=== PATIENT | male | born 1955 | race Caucasian/White ===

== ENCOUNTER 2017-11-10 15:52 | Inpatient (IN) ==
[2017-11-10] MEDS ORDERED: ENOXAPARIN 100 MG/ML SYRINGE SUBCUT STA (16:07)
[2017-11-10] MEDS ORDERED: ASPIRIN 325 MG TABLET PO STA (16:07)
[2017-11-10] MEDS ORDERED: NITROGLYCERIN SL 0.4 MG TABLET SL ONE (16:19)
[2017-11-10] MEDS ORDERED: ENOXAPARIN 120 MG/0.8 ML SYRINGE SUBCUT ONE (16:19)
[2017-11-10] MEDS ORDERED: ONDANSETRON 4 MG/2 ML VIAL ONE (16:28)
[2017-11-10] MEDS ORDERED: ONDANSETRON 4 MG/2 ML VIAL IV STA (16:38)
[2017-11-10] MEDS ORDERED: NITROGLYCERIN SL 0.4 MG TABLET SL STA (16:38)
[2017-11-10 16:44] LABS: Basophils % 0.3 % (0.0-0.8); Hematocrit 48.7 VOL% (42.0-52.0); Hemoglobin 16.5 GM/DL (14.0-18.0); Immature Granulocytes % 0.5 %; Immature Granulocytes Absolute 0.03 #; Lymphocytes # 0.8 10*3/uL (1.4-4.0); Lymphocytes % 11.3 % (21.2-54.2); Mean Corpuscular HGB Conc 33.9 GM/DL (32-36); Mean Corpuscular Hemoglobin 34 PG (27-34); Mean Corpuscular Volume 99.6 FL (87-102); Mean Platelet Volume 10.7 FL (9.6-12.0); Monocytes # 0.4 10*3/uL (0.11-0.8); Monocytes % 5.3 % (1.7-12.7); Neutrophils # 5.5 10*3/uL (1.4-7.4); Neutrophils % 82.6 % (38.7-73.9); Platelet Count 114 T/CUMM (130-400); Red Blood Count 4.89 MC/CUMM (3.8-5.5); Red Cell Distribution Width 12.2 % (9.3-17.3); White Blood Count 6.6 T/CUMM (4-12)
[2017-11-10] MEDS ORDERED: fentaNYL 100 MCG/2 ML VIAL ONE (16:57)
[2017-11-10] MEDS ORDERED: HEPARIN/NACL 0.9% 2 UNITS/ML 1,000 ML IV ONE (16:57)
[2017-11-10] MEDS ORDERED: MIDAZOLAM 2 MG/2 ML VIAL ONE (16:57)
[2017-11-10 17:08] LABS: Albumin 3.6 G/DL (3.4-5.0); Bilirubin,Total 0.9 MG/DL (0.2-1.0); Calcium 8.4 MG/DL (8.5-10.1); Osmolality,Calculated 267.2 MOS/KG (273-304); Potassium 3.8 MMOL/L (3.5-5.1); Total Protein 7.6 G/DL (6.4-8.3)
[2017-11-10] MEDS ORDERED: BISACODYL 5 MG TABLET PO PRN (17:08)
[2017-11-10] MEDS ORDERED: diphenhydrAMINE CAP 25 MG CAPSULE PO PRN (17:08)
[2017-11-10] MEDS ORDERED: MAGNESIUM SULF RIDER 2 GM in PREMIX 1 EACH IV PRN (17:08)
[2017-11-10] MEDS ORDERED: ONDANSETRON 4 MG/2 ML VIAL IV PRN (17:08)
[2017-11-10] MEDS ORDERED: MAGNESIUM SULF RIDER 4 GM in PREMIX 1 EACH IV PRN (17:08)
[2017-11-10] MEDS ORDERED: DIAZEPAM 5 MG TABLET PO ONE (17:13)
[2017-11-10] MEDS ORDERED: diphenhydrAMINE CAP 25 MG CAPSULE PO ONE (17:13)
[2017-11-10] MEDS ORDERED: SODIUM CHLORIDE 0.9% 1,000 ML IV SCH (17:30)
[2017-11-10] MEDS ORDERED: LIDOCAINE 1% 20 ML VIAL ONE (17:37)
[2017-11-10] MEDS ORDERED: ADENOSINE 6 MG/2 ML VIAL ONE (17:37)
[2017-11-10] MEDS ORDERED: DILTIAZEM 50 MG/10 ML VIAL IV ONE ×2 (17:44→18:06)
[2017-11-10] MEDS: DILTIAZEM INJ 100 MG in SODIUM CHLORIDE 0.9% 100 ML IV SCH (18:00)
[2017-11-10] MEDS ORDERED: METOPROLOL TARTRATE 5 MG/5 ML VIAL IV PRN (21:51)
[2017-11-10] MEDS: POTASSIUM CHLORIDE 20 MEQ TABLET PO PRN (22:09)
[2017-11-10] MEDS: ASCORBIC ACID 500 MG TABLET PO SCH (22:09)
[2017-11-10] MEDS: METOPROLOL TARTRATE 50 MG TABLET PO SCH (22:09)
[2017-11-10] MEDS: ZALEPLON 5 MG CAPSULE PO PRN (22:12)
[2017-11-10] MEDS: ACETAMINOPHEN 325 MG TABLET PO PRN (23:45)
[2017-11-11] MEDS: DILTIAZEM INJ 100 MG in SODIUM CHLORIDE 0.9% 100 ML IV SCH ×2 (00:15→21:50)
[2017-11-11 06:03] LABS: Basophils % 0.2 % (0.0-0.8); Hematocrit 43.6 VOL% (42.0-52.0); Hemoglobin 14.8 GM/DL (14.0-18.0); Immature Granulocytes % 0.7 %; Immature Granulocytes Absolute 0.07 #; Lymphocytes # 1.2 10*3/uL (1.4-4.0); Lymphocytes % 11.3 % (21.2-54.2); Mean Corpuscular HGB Conc 33.9 GM/DL (32-36); Mean Corpuscular Hemoglobin 34 PG (27-34); Mean Platelet Volume 10.8 FL (9.6-12.0); Monocytes # 0.5 10*3/uL (0.11-0.8); Monocytes % 4.3 % (1.7-12.7); Neutrophils # 8.8 10*3/uL (1.4-7.4); Neutrophils % 83.5 % (38.7-73.9); Platelet Count 101 T/CUMM (130-400); Red Blood Count 4.36 MC/CUMM (3.8-5.5); Red Cell Distribution Width 12.3 % (9.3-17.3); White Blood Count 10.6 T/CUMM (4-12)
[2017-11-11 06:45] LABS: Calcium 7.7 MG/DL (8.5-10.1); Osmolality,Calculated 269.1 MOS/KG (273-304); Potassium 3.8 MMOL/L (3.5-5.1); Risk Ratio 2.31; Thyroid Stimulating Hormone 2.44 uIU/ml (0.358-3.74); VLDL CHOLESTEROL 14.4 MG/DL
[2017-11-11 07:03] LABS: Macrocytosis 2+; Platelet Estimate Decreased
[2017-11-11] MEDS ORDERED: POTASSIUM CHLORIDE 20 MEQ TABLET PO ONE (08:41)
[2017-11-11] MEDS ORDERED: MAGNESIUM SULF RIDER 2 GM in PREMIX 1 EACH IV ONE (08:41)
[2017-11-11] MEDS ORDERED: AMIODARONE INJ 450 MG in DEXTROSE 5% 241 ML IV SCH (09:00)
[2017-11-11] MEDS ORDERED: AMIODARONE INJ 150 MG in DEXTROSE 5% 100 ML IV ONE (09:03)
[2017-11-11] MEDS: RIVAROXABAN 20 MG TABLET PO SCH (09:09)
[2017-11-11] MEDS: METOPROLOL TARTRATE 50 MG TABLET PO SCH ×2 (09:09→20:23)
[2017-11-11] MEDS: MAGNESIUM OXIDE 400 MG TABLET PO SCH (09:10)
[2017-11-11] MEDS ORDERED: NITROGLYCERIN SL 0.4 MG TABLET SL PRN (10:53)
[2017-11-11] MEDS ORDERED: NITROGLYCERIN SL 0.4 MG TABLET SL ONE (10:56)
[2017-11-11] MEDS: ASPIRIN EC 81 MG TABLET PO SCH (10:58)
[2017-11-11] MEDS: ACETAMINOPHEN 325 MG TABLET PO PRN (10:58)
[2017-11-11] MEDS ORDERED: PHENYLEPHRINE DRIP 40 MG/250 ML PREMIX IV ONE (12:46)
[2017-11-11] MEDS: PHENYLEPHRINE DRIP 40 MG/250 ML PREMIX IV PRN ×2 (12:50→21:50)
[2017-11-11] MEDS ORDERED: PROPOFOL 200 MG/20 ML VIAL IV ONE (13:03)
[2017-11-11] MEDS: MULTIVITAMIN (CENTRUM) TABLET PO SCH (16:13)
[2017-11-11] MEDS: PANTOPRAZOLE 40 MG TABLET PO SCH (16:13)
[2017-11-11] MEDS: ASCORBIC ACID 500 MG TABLET PO SCH ×2 (16:14→20:22)
[2017-11-11] MEDS: AMIODARONE INJ 450 MG in DEXTROSE 5% 241 ML IV SCH (17:32)
[2017-11-11] MEDS: POTASSIUM CHLORIDE 20 MEQ TABLET PO PRN (20:22)
[2017-11-12 05:57] LABS: Basophils % 0.2 % (0.0-0.8); Eosinophils % 0.2 % (0.00-10.9); Hematocrit 42.9 VOL% (42.0-52.0); Hemoglobin 14.6 GM/DL (14.0-18.0); Immature Granulocytes % 1.2 %; Immature Granulocytes Absolute 0.08 #; Lymphocytes # 0.6 10*3/uL (1.4-4.0); Lymphocytes % 8.9 % (21.2-54.2); Mean Corpuscular Hemoglobin 34 PG (27-34); Mean Corpuscular Volume 100.7 FL (87-102); Mean Platelet Volume 11.6 FL (9.6-12.0); Monocytes # 0.3 10*3/uL (0.11-0.8); Monocytes % 3.8 % (1.7-12.7); Neutrophils # 5.7 10*3/uL (1.4-7.4); Neutrophils % 85.7 % (38.7-73.9); Platelet Count 89 T/CUMM (130-400); Red Blood Count 4.26 MC/CUMM (3.8-5.5); Red Cell Distribution Width 12.5 % (9.3-17.3); White Blood Count 6.7 T/CUMM (4-12)
[2017-11-12 06:03] LABS: Calcium 8.1 MG/DL (8.5-10.1); Potassium 3.9 MMOL/L (3.5-5.1)
[2017-11-12 07:56] LABS: Band Neutrophils 9 % (0-10); Hypochromasia 1+; Lymphocytes 9 % (20-55); Platelet Estimate Decreased; Segmented Neutrophils 79 % (50-85); Total Cells Counted 100
[2017-11-12] MEDS ORDERED: POTASSIUM CHLORIDE 20 MEQ TABLET PO ONE (08:23)
[2017-11-12] MEDS: DIGOXIN 0.5 MG/2 ML AMP IV SCH ×2 (08:30→14:51)
[2017-11-12] MEDS: MAGNESIUM OXIDE 400 MG TABLET PO SCH (08:30)
[2017-11-12] MEDS: ASCORBIC ACID 500 MG TABLET PO SCH ×2 (08:30→20:18)
[2017-11-12] MEDS: RIVAROXABAN 20 MG TABLET PO SCH (08:30)
[2017-11-12] MEDS: MULTIVITAMIN (CENTRUM) TABLET PO SCH (08:31)
[2017-11-12] MEDS: COLCHICINE 0.6 MG TABLET PO SCH ×2 (08:31→20:18)
[2017-11-12] MEDS: PANTOPRAZOLE 40 MG TABLET PO SCH (08:31)
[2017-11-12] MEDS: METOPROLOL TARTRATE 50 MG TABLET PO SCH ×2 (08:31→20:18)
[2017-11-12] MEDS: ASPIRIN EC 81 MG TABLET PO SCH (08:31)
[2017-11-12] MEDS: guaiFENesin/DM ER 600-30 MG TABLET PO PRN (08:31)
[2017-11-12] MEDS: AMIODARONE INJ 450 MG in DEXTROSE 5% 241 ML IV SCH ×2 (08:45→23:46)
[2017-11-12] MEDS: DILTIAZEM INJ 100 MG in SODIUM CHLORIDE 0.9% 100 ML IV SCH ×2 (11:40→18:09)
[2017-11-12 18:37] LABS: Barbiturates Screen,Urine Negative (Negative); Benzodiazepines Screen,Urine Positive (Negative); Cannabinoid Screen,Urine Negative (Negative); Opiate Screen,Urine Negative (Negative); Phencyclidine Screen,Urine Negative (Negative)
[2017-11-12] MEDS: ACETAMINOPHEN 325 MG TABLET PO PRN (20:17)
[2017-11-12] MEDS: ZALEPLON 5 MG CAPSULE PO PRN (20:18)
[2017-11-13 05:26] LABS: Basophils # 0.1 10*3/uL (0.0-0.2); Basophils % 0.8 % (0.0-0.8); Hemoglobin 14.8 GM/DL (14.0-18.0); Immature Granulocytes % 0.7 %; Immature Granulocytes Absolute 0.05 #; Lymphocytes # 0.4 10*3/uL (1.4-4.0); Lymphocytes % 5.5 % (21.2-54.2); Mean Corpuscular HGB Conc 35.2 GM/DL (32-36); Mean Corpuscular Hemoglobin 34 PG (27-34); Mean Corpuscular Volume 97.7 FL (87-102); Mean Platelet Volume 12.4 FL (9.6-12.0); Monocytes # 0.3 10*3/uL (0.11-0.8); Monocytes % 4.4 % (1.7-12.7); Neutrophils # 6.7 10*3/uL (1.4-7.4); Neutrophils % 88.6 % (38.7-73.9); Platelet Count 68 T/CUMM (130-400); Red Cell Distribution Width 12.7 % (9.3-17.3); White Blood Count 7.5 T/CUMM (4-12)
[2017-11-13 05:29] LABS: Calcium 7.8 MG/DL (8.5-10.1); Osmolality,Calculated 259.1 MOS/KG (273-304); Potassium 4.2 MMOL/L (3.5-5.1)
[2017-11-13 06:00] LABS: Band Neutrophils 4 % (0-10); Lymphocytes 5 % (20-55); Macrocytosis 2+; Platelet Estimate Decreased; Segmented Neutrophils 90 % (50-85); Total Cells Counted 100
[2017-11-13] MEDS: SODIUM CHLORIDE 0.9% 1,000 ML IV SCH ×2 (07:15→17:02)
[2017-11-13] MEDS: guaiFENesin/DM ER 600-30 MG TABLET PO PRN (08:50)
[2017-11-13] MEDS: ASCORBIC ACID 500 MG TABLET PO SCH ×2 (08:50→20:24)
[2017-11-13] MEDS: ASPIRIN EC 81 MG TABLET PO SCH (08:50)
[2017-11-13] MEDS: DIGOXIN 0.125 MG TABLET PO SCH (08:50)
[2017-11-13] MEDS: MULTIVITAMIN (CENTRUM) TABLET PO SCH (08:51)
[2017-11-13] MEDS: METOPROLOL TARTRATE 50 MG TABLET PO SCH ×2 (08:51→20:24)
[2017-11-13] MEDS: MAGNESIUM OXIDE 400 MG TABLET PO SCH (08:51)
[2017-11-13] MEDS: PANTOPRAZOLE 40 MG TABLET PO SCH (08:51)
[2017-11-13] MEDS: COLCHICINE 0.6 MG TABLET PO SCH ×2 (08:51→20:24)
[2017-11-13] MEDS: ACETAMINOPHEN 325 MG TABLET PO PRN (09:39)
[2017-11-13] MEDS: RIVAROXABAN 20 MG TABLET PO SCH (11:36)
[2017-11-13] MEDS: LOPERAMIDE 2 MG CAPSULE PO PRN ×2 (11:36→15:30)
[2017-11-13] MEDS: AMIODARONE INJ 450 MG in DEXTROSE 5% 241 ML IV SCH (14:50)
[2017-11-13] MEDS: DILTIAZEM INJ 100 MG in SODIUM CHLORIDE 0.9% 100 ML IV SCH (17:51)
[2017-11-13] MEDS: ZALEPLON 5 MG CAPSULE PO PRN (20:24)
[2017-11-14] MEDS: SODIUM CHLORIDE 0.9% 1,000 ML IV SCH ×2 (02:37→12:52)
[2017-11-14 05:02] LABS: Basophils % 0.2 % (0.0-0.8); Eosinophils % 0.2 % (0.00-10.9); Hematocrit 36.4 VOL% (42.0-52.0); Hemoglobin 12.3 GM/DL (14.0-18.0); Immature Granulocytes % 1.5 %; Immature Granulocytes Absolute 0.09 #; Lymphocytes # 0.4 10*3/uL (1.4-4.0); Mean Corpuscular HGB Conc 33.8 GM/DL (32-36); Mean Corpuscular Hemoglobin 34 PG (27-34); Mean Corpuscular Volume 100.6 FL (87-102); Mean Platelet Volume 11.7 FL (9.6-12.0); Monocytes # 0.3 10*3/uL (0.11-0.8); Monocytes % 4.3 % (1.7-12.7); Neutrophils # 5.2 10*3/uL (1.4-7.4); Neutrophils % 86.8 % (38.7-73.9); Platelet Count 89 T/CUMM (130-400); Red Blood Count 3.62 MC/CUMM (3.8-5.5); Red Cell Distribution Width 12.5 % (9.3-17.3)
[2017-11-14 05:28] LABS: Band Neutrophils 5 % (0-10); Lymphocytes 4 % (20-55); Segmented Neutrophils 87 % (50-85); Total Cells Counted 100
[2017-11-14 05:29] LABS: Hypochromasia 1+; Macrocytosis 1+
[2017-11-14 05:32] LABS: Calcium 7.7 MG/DL (8.5-10.1); Osmolality,Calculated 264.8 MOS/KG (273-304); Potassium 3.7 MMOL/L (3.5-5.1)
[2017-11-14] MEDS: AMIODARONE INJ 450 MG in DEXTROSE 5% 241 ML IV SCH (06:20)
[2017-11-14] MEDS: ACETAMINOPHEN 325 MG TABLET PO PRN ×2 (07:12→20:42)
[2017-11-14] MEDS: METOPROLOL TARTRATE 50 MG TABLET PO SCH (08:23)
[2017-11-14] MEDS: MULTIVITAMIN (CENTRUM) TABLET PO SCH (08:23)
[2017-11-14] MEDS: POTASSIUM CHLORIDE 20 MEQ TABLET PO PRN (08:23)
[2017-11-14] MEDS: RIVAROXABAN 20 MG TABLET PO SCH (08:23)
[2017-11-14] MEDS: COLCHICINE 0.6 MG TABLET PO SCH (08:23)
[2017-11-14] MEDS: PANTOPRAZOLE 40 MG TABLET PO SCH (08:23)
[2017-11-14] MEDS: MAGNESIUM OXIDE 400 MG TABLET PO SCH (08:23)
[2017-11-14] MEDS: ASPIRIN EC 81 MG TABLET PO SCH (08:23)
[2017-11-14] MEDS: ASCORBIC ACID 500 MG TABLET PO SCH ×2 (08:23→20:43)
[2017-11-14] MEDS: DIGOXIN 0.125 MG TABLET PO SCH (08:23)
[2017-11-14] MEDS: LOPERAMIDE 2 MG CAPSULE PO PRN (10:08)
[2017-11-14] MEDS: AMIODARONE 200 MG TABLET PO SCH (11:51)
[2017-11-14] MEDS: DILTIAZEM INJ 100 MG in SODIUM CHLORIDE 0.9% 100 ML IV SCH (18:08)
[2017-11-14] MEDS: ZALEPLON 5 MG CAPSULE PO PRN (20:43)
[2017-11-14] MEDS: METOPROLOL TARTRATE 100 MG TABLET PO SCH (20:43)
[2017-11-15] MEDS: SODIUM CHLORIDE 0.9% 1,000 ML IV SCH (02:01)
[2017-11-15 04:48] LABS: Basophils % 0.5 % (0.0-0.8); Eosinophils % 0.7 % (0.00-10.9); Hematocrit 35.5 VOL% (42.0-52.0); Hemoglobin 12.7 GM/DL (14.0-18.0); Immature Granulocytes Absolute 0.11 #; Lymphocytes # 0.4 10*3/uL (1.4-4.0); Lymphocytes % 7.7 % (21.2-54.2); Mean Corpuscular HGB Conc 35.8 GM/DL (32-36); Mean Corpuscular Hemoglobin 34 PG (27-34); Mean Corpuscular Volume 96.2 FL (87-102); Mean Platelet Volume 12.3 FL (9.6-12.0); Monocytes # 0.3 10*3/uL (0.11-0.8); Monocytes % 5.9 % (1.7-12.7); Neutrophils # 4.6 10*3/uL (1.4-7.4); Neutrophils % 83.2 % (38.7-73.9); Platelet Count 115 T/CUMM (130-400); Red Blood Count 3.69 MC/CUMM (3.8-5.5); Red Cell Distribution Width 12.7 % (9.3-17.3); White Blood Count 5.6 T/CUMM (4-12)
[2017-11-15 05:16] LABS: Calcium 7.7 MG/DL (8.5-10.1); Osmolality,Calculated 270.2 MOS/KG (273-304); Potassium 3.5 MMOL/L (3.5-5.1)
[2017-11-15 05:17] LABS: % Iron Saturation 6.8 % (18-50)
[2017-11-15 05:20] LABS: Bilirubin,Direct 0.6 MG/DL (0.0-0.20); Bilirubin,Indirect 0.6 MG/DL (0.0-1.0); Bilirubin,Total 1.2 MG/DL (0.2-1.0); Total Protein 5.8 G/DL (6.4-8.3)
[2017-11-15 05:45] LABS: Band Neutrophils 4 % (0-10); Lymphocytes 11 % (20-55); Segmented Neutrophils 82 % (50-85); Total Cells Counted 100
[2017-11-15 05:46] LABS: Macrocytosis 2+; Platelet Estimate Decreased
[2017-11-15 06:11] LABS: Hepatitis A Ab IgM Result Negative (Negative); Hepatitis B Core IgM Quant 0.09 Index; Hepatitis B Core IgM Result Negative (Negative); Hepatitis B Surface Ag Quant < 0.10 Index; Hepatitis B Surface Ag Result Negative (Negative); Hepatitis C Virus Ab Quant 0.18 Index; Hepatitis C Virus Ab Result Negative (Negative)
[2017-11-15 07:56] LABS: Folate 14.6 NG/ML (5.4-24.0)
[2017-11-15] MEDS: DIGOXIN 0.125 MG TABLET PO SCH (09:57)
[2017-11-15] MEDS: AMIODARONE 200 MG TABLET PO SCH (09:58)
[2017-11-15] MEDS: PANTOPRAZOLE 40 MG TABLET PO SCH (09:58)
[2017-11-15] MEDS: MULTIVITAMIN (CENTRUM) TABLET PO SCH (09:58)
[2017-11-15] MEDS: POTASSIUM CHLORIDE 20 MEQ TABLET PO PRN (09:58)
[2017-11-15] MEDS: MAGNESIUM OXIDE 400 MG TABLET PO SCH (09:58)
[2017-11-15] MEDS: ASCORBIC ACID 500 MG TABLET PO SCH (09:58)
[2017-11-15] MEDS: METOPROLOL TARTRATE 100 MG TABLET PO SCH (09:58)
[2017-11-15] MEDS: RIVAROXABAN 20 MG TABLET PO SCH (09:58)
[2017-11-15] MEDS: ASPIRIN EC 81 MG TABLET PO SCH (09:58)
[2017-11-15 15:58] VITALS: BP 110/67
== END 2017-11-15 16:30 | disposition home or self-care (01) | DRG 287 ==
LOC: N.ED 15:52 → N.EDINP 15:52 → N.CC 17:03 → N.TELES 11-14 18:05
PROVIDERS: ADMIT Internal Medicine Cardiovascular Disease; ATTEND Internal Medicine Cardiovascular Disease
PROC: CLCCHCL (ICD-10-PCS; 2017-11-10 17:30)

== ENCOUNTER 2017-11-17 11:14 | Inpatient (IN) ==
[2017-11-17] MEDS ORDERED: MORPHINE 4 MG/1 ML VIAL IV STA ×2 (12:16→14:02)
[2017-11-17] MEDS ORDERED: ONDANSETRON 4 MG/2 ML VIAL IV STA ×2 (12:18→14:02)
[2017-11-17] MEDS ORDERED: MORPHINE 4 MG/1 ML VIAL ONE ×2 (12:23→14:04)
[2017-11-17] MEDS ORDERED: ONDANSETRON 4 MG/2 ML VIAL ONE ×2 (12:23→14:04)
[2017-11-17 12:33] LABS: Basophils % 0.3 % (0.0-0.8); Eosinophils % 0.1 % (0.00-10.9); Hematocrit 38.3 VOL% (42.0-52.0); Hemoglobin 13.6 GM/DL (14.0-18.0); Immature Granulocytes % 1.3 %; Immature Granulocytes Absolute 0.16 #; Lymphocytes # 0.9 10*3/uL (1.4-4.0); Lymphocytes % 7.5 % (21.2-54.2); Mean Corpuscular HGB Conc 35.5 GM/DL (32-36); Mean Corpuscular Hemoglobin 35 PG (27-34); Mean Corpuscular Volume 98.2 FL (87-102); Mean Platelet Volume 11.3 FL (9.6-12.0); Monocytes # 0.5 10*3/uL (0.11-0.8); Monocytes % 3.8 % (1.7-12.7); Neutrophils # 10.4 10*3/uL (1.4-7.4); Platelet Count 279 T/CUMM (130-400)
[2017-11-17 12:46] LABS: INR 1.5; PT Patient Result 15.4 SECS; Partial Thromboplastin Time 39.4 SECS (0-40)
[2017-11-17 12:52] LABS: Band Neutrophils 3 % (0-10); Eosinophils 1 % (0-10); Hypochromasia Slight; Lymphocytes 4 % (20-55); Macrocytosis Slight; Ovalocytes Slight; Platelet Estimate Adequate; Segmented Neutrophils 86 % (50-85); Total Cells Counted 100
[2017-11-17 13:05] LABS: Alanine Aminotransferase 49 U/L (16-61); Albumin 1.8 G/DL (3.4-5.0); Alkaline Phosphatase 49 U/L (45-117); Aspartate Amino Transferase 50 U/L (0-37); Blood Urea Nitrogen 16 MG/DL (7-18); Calcium 7.9 MG/DL (8.5-10.1); Glucose 121 MG/DL (74-106); Osmolality,Calculated 276.7 MOS/KG (273-304); Potassium 3.6 MMOL/L (3.5-5.1); Sodium 138 MMOL/L (136-145); Total Protein 5.3 G/DL (6.4-8.3); Troponin I Only < 0.015 NG/ML (0.00-0.045)
[2017-11-17] MEDS ORDERED: LEVOFLOXACIN INJ 750 MG in PREMIX 1 EACH IV STA (14:15)
[2017-11-17] MEDS ORDERED: LEVOFLOXACIN INJ 150 ML IV ONE (14:19)
[2017-11-17] MEDS ORDERED: METOPROLOL TARTRATE 5 MG/5 ML VIAL IV ONE (15:18)
[2017-11-17] MEDS ORDERED: METOPROLOL TARTRATE 5 MG/5 ML VIAL IV STA (15:20)
[2017-11-17] MEDS ORDERED: ONDANSETRON 4 MG/2 ML VIAL IV PRN (15:47)
[2017-11-17] MEDS ORDERED: SODIUM CHLORIDE 0.9% 1,000 ML IV SCH (16:00)
[2017-11-17] MEDS ORDERED: ACETAMINOPHEN 325 MG TABLET ONE (16:22)
[2017-11-17] MEDS: ACETAMINOPHEN 325 MG TABLET PO PRN ×2 (16:23→20:37)
[2017-11-17] MEDS ORDERED: CLINDAMYCIN INJ 600 MG in PREMIX 1 EACH IV SCH (18:00)
[2017-11-17] MEDS ORDERED: CYCLOBENZAPRINE 10 MG TABLET PO PRN (20:34)
[2017-11-17] MEDS: FAMOTIDINE 20 MG TABLET PO SCH (20:37)
[2017-11-17] MEDS: METOPROLOL TARTRATE 100 MG TABLET PO SCH (20:37)
[2017-11-17] MEDS: VANCOMYCIN INJ 1,500 MG in SODIUM CHLORIDE 0.9% 500 ML IV SCH (21:51)
[2017-11-18] MEDS: ACETAMINOPHEN 325 MG TABLET PO PRN (02:05)
[2017-11-18 03:44] LABS: Basophils % 0.3 % (0.0-0.8); Eosinophils % 0.1 % (0.00-10.9); Hematocrit 37.6 VOL% (42.0-52.0); Immature Granulocytes % 0.9 %; Immature Granulocytes Absolute 0.12 #; Mean Corpuscular HGB Conc 34.6 GM/DL (32-36); Mean Corpuscular Hemoglobin 34 PG (27-34); Mean Corpuscular Volume 97.9 FL (87-102); Mean Platelet Volume 11.1 FL (9.6-12.0); Monocytes # 0.5 10*3/uL (0.11-0.8); Monocytes % 4.2 % (1.7-12.7); Neutrophils # 11.1 10*3/uL (1.4-7.4); Neutrophils % 86.5 % (38.7-73.9); Platelet Count 281 T/CUMM (130-400); Red Blood Count 3.84 MC/CUMM (3.8-5.5); Red Cell Distribution Width 12.8 % (9.3-17.3); White Blood Count 12.8 T/CUMM (4-12)
[2017-11-18 04:11] LABS: Calcium 7.9 MG/DL (8.5-10.1); Potassium 3.3 MMOL/L (3.5-5.1)
[2017-11-18 04:49] LABS: Hypochromasia 1+; Microcytosis Slight; Platelet Estimate Normal
[2017-11-18] MEDS: VANCOMYCIN INJ 1,500 MG in SODIUM CHLORIDE 0.9% 500 ML IV SCH ×2 (05:08→17:01)
[2017-11-18] MEDS: POTASSIUM CHLORIDE 20 MEQ TABLET PO PRN ×4 (05:42→12:58)
[2017-11-18] MEDS: PANTOPRAZOLE 40 MG TABLET PO SCH (09:05)
[2017-11-18] MEDS: FAMOTIDINE 20 MG TABLET PO SCH ×2 (09:05→21:01)
[2017-11-18] MEDS: AMIODARONE 200 MG TABLET PO SCH (09:05)
[2017-11-18] MEDS: MAGNESIUM OXIDE 400 MG TABLET PO SCH (09:05)
[2017-11-18] MEDS: IRON (CARBONYL)/VIT C/B12/FA TABLET PO SCH (09:06)
[2017-11-18] MEDS: DILTIAZEM CD 180 MG CAPSULE PO SCH ×2 (09:06→21:00)
[2017-11-18] MEDS: RIVAROXABAN 20 MG TABLET PO SCH (09:06)
[2017-11-18] MEDS: ASPIRIN EC 81 MG TABLET PO SCH (09:07)
[2017-11-18] MEDS: METOPROLOL TARTRATE 100 MG TABLET PO SCH ×2 (09:07→21:01)
[2017-11-18] MEDS: DIGOXIN 0.125 MG TABLET PO SCH (12:58)
[2017-11-18] MEDS ORDERED: LEVOFLOXACIN INJ 500 MG in PREMIX 1 EACH IV SCH (16:00)
[2017-11-19] MEDS: ACETAMINOPHEN 325 MG TABLET PO PRN (00:23)
[2017-11-19 03:51] LABS: Hematocrit 37.7 VOL% (42.0-52.0); Hemoglobin 13.3 GM/DL (14.0-18.0)
[2017-11-19 04:36] LABS: Calcium 7.9 MG/DL (8.5-10.1); Osmolality,Calculated 279.4 MOS/KG (273-304); Potassium 3.7 MMOL/L (3.5-5.1)
[2017-11-19] MEDS: VANCOMYCIN INJ 1,500 MG in SODIUM CHLORIDE 0.9% 500 ML IV SCH ×2 (05:37→18:08)
[2017-11-19] MEDS: METHOCARBAMOL 500 MG TABLET PO PRN ×3 (07:19→21:02)
[2017-11-19] MEDS: PANTOPRAZOLE 40 MG TABLET PO SCH (09:54)
[2017-11-19] MEDS: IRON (CARBONYL)/VIT C/B12/FA TABLET PO SCH (09:54)
[2017-11-19] MEDS: MAGNESIUM OXIDE 400 MG TABLET PO SCH (09:55)
[2017-11-19] MEDS: FAMOTIDINE 20 MG TABLET PO SCH ×2 (09:55→21:02)
[2017-11-19] MEDS: DILTIAZEM CD 180 MG CAPSULE PO SCH ×2 (09:55→21:01)
[2017-11-19] MEDS: RIVAROXABAN 20 MG TABLET PO SCH (09:55)
[2017-11-19] MEDS: ASPIRIN EC 81 MG TABLET PO SCH (09:55)
[2017-11-19] MEDS: AMIODARONE 200 MG TABLET PO SCH (09:55)
[2017-11-19] MEDS: METOPROLOL TARTRATE 100 MG TABLET PO SCH ×2 (09:55→21:02)
[2017-11-19] MEDS: DIGOXIN 0.125 MG TABLET PO SCH (12:52)
[2017-11-20 03:01] LABS: Basophils # 0.1 10*3/uL (0.0-0.2); Basophils % 0.3 % (0.0-0.8); Eosinophils # 0.1 10*3/uL (0.0-0.87); Eosinophils % 0.5 % (0.00-10.9); Hematocrit 38.5 VOL% (42.0-52.0); Immature Granulocytes % 1.4 %; Immature Granulocytes Absolute 0.21 #; Lymphocytes # 1.6 10*3/uL (1.4-4.0); Mean Corpuscular HGB Conc 33.8 GM/DL (32-36); Mean Corpuscular Hemoglobin 34 PG (27-34); Mean Corpuscular Volume 100.8 FL (87-102); Mean Platelet Volume 10.5 FL (9.6-12.0); Monocytes # 1.1 10*3/uL (0.11-0.8); Monocytes % 7.1 % (1.7-12.7); Neutrophils # 11.9 10*3/uL (1.4-7.4); Neutrophils % 79.7 % (38.7-73.9); Platelet Count 368 T/CUMM (130-400); Red Blood Count 3.82 MC/CUMM (3.8-5.5); Red Cell Distribution Width 13.2 % (9.3-17.3)
[2017-11-20 03:30] LABS: Calcium 7.9 MG/DL (8.5-10.1); Osmolality,Calculated 273.7 MOS/KG (273-304)
[2017-11-20] MEDS: VANCOMYCIN INJ 1,750 MG in SODIUM CHLORIDE 0.9% 500 ML IV SCH ×3 (04:06→21:02)
[2017-11-20 05:16] LABS: Band Neutrophils 6 % (0-10); Lymphocytes 5 % (20-55); Segmented Neutrophils 84 % (50-85); Total Cells Counted 100
[2017-11-20] MEDS: METHOCARBAMOL 500 MG TABLET PO PRN ×2 (07:07→17:05)
[2017-11-20] MEDS: IRON (CARBONYL)/VIT C/B12/FA TABLET PO SCH (09:11)
[2017-11-20] MEDS: DILTIAZEM CD 180 MG CAPSULE PO SCH ×2 (09:11→21:05)
[2017-11-20] MEDS: ASPIRIN EC 81 MG TABLET PO SCH (09:11)
[2017-11-20] MEDS: METOPROLOL TARTRATE 100 MG TABLET PO SCH ×2 (09:11→21:04)
[2017-11-20] MEDS: RIVAROXABAN 20 MG TABLET PO SCH (09:11)
[2017-11-20] MEDS: MAGNESIUM OXIDE 400 MG TABLET PO SCH (09:11)
[2017-11-20] MEDS: PANTOPRAZOLE 40 MG TABLET PO SCH (09:12)
[2017-11-20] MEDS: AMIODARONE 200 MG TABLET PO SCH (09:12)
[2017-11-20] MEDS: FAMOTIDINE 20 MG TABLET PO SCH ×2 (09:12→21:05)
[2017-11-20] MEDS: DIGOXIN 0.125 MG TABLET PO SCH (12:05)
[2017-11-21 03:15] LABS: Basophils % 0.4 % (0.0-0.8); Eosinophils # 0.1 10*3/uL (0.0-0.87); Eosinophils % 0.5 % (0.00-10.9); Hematocrit 38.8 VOL% (42.0-52.0); Hemoglobin 13.8 GM/DL (14.0-18.0); Immature Granulocytes % 1.4 %; Immature Granulocytes Absolute 0.14 #; Lymphocytes # 1.3 10*3/uL (1.4-4.0); Lymphocytes % 12.5 % (21.2-54.2); Mean Corpuscular HGB Conc 35.6 GM/DL (32-36); Mean Corpuscular Hemoglobin 35 PG (27-34); Mean Corpuscular Volume 97.5 FL (87-102); Mean Platelet Volume 10.7 FL (9.6-12.0); Monocytes # 0.8 10*3/uL (0.11-0.8); Monocytes % 7.8 % (1.7-12.7); Neutrophils % 77.4 % (38.7-73.9); Platelet Count 400 T/CUMM (130-400); Red Blood Count 3.98 MC/CUMM (3.8-5.5); Red Cell Distribution Width 13.1 % (9.3-17.3); White Blood Count 10.3 T/CUMM (4-12)
[2017-11-21 03:28] LABS: Calcium 8.1 MG/DL (8.5-10.1); Osmolality,Calculated 275.5 MOS/KG (273-304); Potassium 3.6 MMOL/L (3.5-5.1)
[2017-11-21] MEDS: VANCOMYCIN INJ 1,750 MG in SODIUM CHLORIDE 0.9% 500 ML IV SCH ×3 (03:57→21:31)
[2017-11-21 04:16] LABS: Platelet Estimate Normal; Polychromasia Few
[2017-11-21 04:17] LABS: Hypochromasia Slight
[2017-11-21 04:18] LABS: Giant Platelets Few
[2017-11-21] MEDS: MAGNESIUM OXIDE 400 MG TABLET PO SCH (09:13)
[2017-11-21] MEDS: METOPROLOL TARTRATE 100 MG TABLET PO SCH ×2 (09:13→21:30)
[2017-11-21] MEDS: ASPIRIN EC 81 MG TABLET PO SCH (09:13)
[2017-11-21] MEDS: PANTOPRAZOLE 40 MG TABLET PO SCH (09:14)
[2017-11-21] MEDS: RIVAROXABAN 20 MG TABLET PO SCH (09:14)
[2017-11-21] MEDS: DILTIAZEM CD 180 MG CAPSULE PO SCH (09:14)
[2017-11-21] MEDS: FAMOTIDINE 20 MG TABLET PO SCH ×2 (09:14→21:30)
[2017-11-21] MEDS: AMIODARONE 200 MG TABLET PO SCH (09:14)
[2017-11-21] MEDS: IRON (CARBONYL)/VIT C/B12/FA TABLET PO SCH (09:14)
[2017-11-21] MEDS: DIGOXIN 0.125 MG TABLET PO SCH (13:46)
[2017-11-21] MEDS: DILTIAZEM CD 240 MG CAPSULE PO SCH (21:30)
[2017-11-22] MEDS: VANCOMYCIN INJ 1,750 MG in SODIUM CHLORIDE 0.9% 500 ML IV SCH ×3 (04:19→20:20)
[2017-11-22] MEDS: FAMOTIDINE 20 MG TABLET PO SCH ×2 (09:23→21:58)
[2017-11-22] MEDS: DILTIAZEM CD 240 MG CAPSULE PO SCH ×2 (09:23→21:58)
[2017-11-22] MEDS: AMIODARONE 200 MG TABLET PO SCH (09:23)
[2017-11-22] MEDS: IRON (CARBONYL)/VIT C/B12/FA TABLET PO SCH (09:23)
[2017-11-22] MEDS: LOSARTAN 25 MG TABLET PO SCH (09:23)
[2017-11-22] MEDS: PANTOPRAZOLE 40 MG TABLET PO SCH (09:23)
[2017-11-22] MEDS: METOPROLOL TARTRATE 100 MG TABLET PO SCH ×2 (09:23→21:59)
[2017-11-22] MEDS: MAGNESIUM OXIDE 400 MG TABLET PO SCH (09:23)
[2017-11-22] MEDS: RIVAROXABAN 20 MG TABLET PO SCH (09:23)
[2017-11-22] MEDS: ASPIRIN EC 81 MG TABLET PO SCH (09:23)
[2017-11-22] MEDS: METHOCARBAMOL 500 MG TABLET PO PRN ×2 (09:44→19:45)
[2017-11-23] MEDS: VANCOMYCIN INJ 1,750 MG in SODIUM CHLORIDE 0.9% 500 ML IV SCH ×3 (04:21→21:05)
[2017-11-23 05:23] LABS: Basophils % 0.4 % (0.0-0.8); Eosinophils # 0.1 10*3/uL (0.0-0.87); Eosinophils % 1.2 % (0.00-10.9); Hematocrit 39.1 VOL% (42.0-52.0); Hemoglobin 13.2 GM/DL (14.0-18.0); Immature Granulocytes % 0.9 %; Immature Granulocytes Absolute 0.09 #; Lymphocytes # 1.5 10*3/uL (1.4-4.0); Lymphocytes % 15.1 % (21.2-54.2); Mean Corpuscular HGB Conc 33.8 GM/DL (32-36); Mean Corpuscular Hemoglobin 34 PG (27-34); Mean Corpuscular Volume 100.3 FL (87-102); Mean Platelet Volume 10.2 FL (9.6-12.0); Monocytes # 1.1 10*3/uL (0.11-0.8); Monocytes % 11.2 % (1.7-12.7); Neutrophils % 71.2 % (38.7-73.9); Platelet Count 450 T/CUMM (130-400); White Blood Count 9.9 T/CUMM (4-12)
[2017-11-23 05:46] LABS: Osmolality,Calculated 270.8 MOS/KG (273-304); Potassium 3.8 MMOL/L (3.5-5.1)
[2017-11-23 06:34] LABS: Band Neutrophils 4 % (0-10); Eosinophils 2 % (0-10); Lymphocytes 11 % (20-55); Segmented Neutrophils 77 % (50-85); Total Cells Counted 100
[2017-11-23 06:35] LABS: Macrocytosis 1+
[2017-11-23] MEDS: METHOCARBAMOL 500 MG TABLET PO PRN ×3 (06:41→21:01)
[2017-11-23] MEDS: DILTIAZEM CD 180 MG CAPSULE PO SCH ×2 (09:59→21:00)
[2017-11-23] MEDS: ASPIRIN EC 81 MG TABLET PO SCH (09:59)
[2017-11-23] MEDS: AMIODARONE 200 MG TABLET PO SCH (09:59)
[2017-11-23] MEDS: METOPROLOL TARTRATE 100 MG TABLET PO SCH ×2 (10:00→21:01)
[2017-11-23] MEDS: IRON (CARBONYL)/VIT C/B12/FA TABLET PO SCH (10:00)
[2017-11-23] MEDS: PANTOPRAZOLE 40 MG TABLET PO SCH (10:00)
[2017-11-23] MEDS: MAGNESIUM OXIDE 400 MG TABLET PO SCH (10:00)
[2017-11-23] MEDS: FAMOTIDINE 20 MG TABLET PO SCH ×2 (10:00→21:01)
[2017-11-23] MEDS: LOSARTAN 25 MG TABLET PO SCH (10:00)
[2017-11-23] MEDS: RIVAROXABAN 20 MG TABLET PO SCH (10:00)
[2017-11-24] MEDS: VANCOMYCIN INJ 1,750 MG in SODIUM CHLORIDE 0.9% 500 ML IV SCH ×3 (04:20→20:48)
[2017-11-24] MEDS: RIVAROXABAN 20 MG TABLET PO SCH (08:56)
[2017-11-24] MEDS: IRON (CARBONYL)/VIT C/B12/FA TABLET PO SCH (08:56)
[2017-11-24] MEDS: DILTIAZEM CD 180 MG CAPSULE PO SCH (08:56)
[2017-11-24] MEDS: FAMOTIDINE 20 MG TABLET PO SCH ×2 (08:56→20:51)
[2017-11-24] MEDS: PANTOPRAZOLE 40 MG TABLET PO SCH (08:56)
[2017-11-24] MEDS: AMIODARONE 200 MG TABLET PO SCH (08:56)
[2017-11-24] MEDS: ASPIRIN EC 81 MG TABLET PO SCH (08:57)
[2017-11-24] MEDS: MAGNESIUM OXIDE 400 MG TABLET PO SCH (08:57)
[2017-11-24] MEDS: METOPROLOL TARTRATE 100 MG TABLET PO SCH ×2 (08:57→20:51)
[2017-11-24] MEDS: LOSARTAN 25 MG TABLET PO SCH (08:57)
[2017-11-24] MEDS: METHOCARBAMOL 500 MG TABLET PO PRN ×2 (08:57→20:55)
[2017-11-24] MEDS: ACETAMINOPHEN 325 MG TABLET PO PRN ×2 (20:51)
[2017-11-25] MEDS: VANCOMYCIN INJ 1,750 MG in SODIUM CHLORIDE 0.9% 500 ML IV SCH (03:55)
[2017-11-25 05:16] LABS: Calcium 8.1 MG/DL (8.5-10.1); Osmolality,Calculated 273.7 MOS/KG (273-304); Potassium 3.7 MMOL/L (3.5-5.1)
[2017-11-25] MEDS: FAMOTIDINE 20 MG TABLET PO SCH (08:49)
[2017-11-25] MEDS: IRON (CARBONYL)/VIT C/B12/FA TABLET PO SCH (08:49)
[2017-11-25] MEDS: RIVAROXABAN 20 MG TABLET PO SCH (08:50)
[2017-11-25] MEDS: PANTOPRAZOLE 40 MG TABLET PO SCH (08:50)
[2017-11-25] MEDS: LOSARTAN 25 MG TABLET PO SCH (08:50)
[2017-11-25] MEDS: METOPROLOL TARTRATE 100 MG TABLET PO SCH (08:51)
[2017-11-25] MEDS: AMIODARONE 200 MG TABLET PO SCH (08:51)
[2017-11-25] MEDS: MAGNESIUM OXIDE 400 MG TABLET PO SCH (08:51)
[2017-11-25] MEDS: ASPIRIN EC 81 MG TABLET PO SCH (08:51)
[2017-11-25] MEDS ORDERED: DILTIAZEM CD 180 MG CAPSULE PO SCH (09:00)
[2017-11-25 16:32] VITALS: BP 134/63
== END 2017-11-25 16:55 | disposition home or self-care (01) | DRG 856 ==
LOC: N.ED 11:14 → N.2W 15:47 → SUATTDRO 15:47 → N.TELEN 16:40
PROVIDERS: ADMIT Internal Medicine Geriatric Medicine; ATTEND Internal Medicine

== ENCOUNTER 2019-10-08 05:36 | Inpatient (IN) ==
[~2019-10-08 05:36] MED LIST: ceFAZolin 1,000 MG VIAL IRRIG ONE; ceFAZolin 1,000 MG in SYRINGE 1 EACH IV ONE
[2019-10-08 08:15] LABS: Basophils # 0.1 10*3/uL (0.0-0.2); Basophils % 0.7 % (0.0-0.8); Eosinophils # 0.4 10*3/uL (0.0-0.87); Eosinophils % 6.2 % (0.00-10.9); Hematocrit 45.9 VOL% (42.0-52.0); Hemoglobin 15.2 GM/DL (14.0-18.0); Immature Granulocytes % 0.3 %; Immature Granulocytes Absolute 0.02 #; Lymphocytes # 2.3 10*3/uL (1.4-4.0); Lymphocytes % 32.5 % (21.2-54.2); Mean Corpuscular HGB Conc 33.1 GM/DL (32-36); Mean Corpuscular Volume 98.3 FL (87-102); Monocytes % 11.9 % (1.7-12.7); Neutrophils % 48.4 % (38.7-73.9); Platelet Count 228 T/CUMM (130-400); Red Blood Count 4.67 MC/CUMM (3.8-5.5); Red Cell Distribution Width 12.5 % (9.3-17.3); White Blood Count 7.1 T/CUMM (4-12)
[2019-10-08 08:42] LABS: Calcium 9.5 MG/DL (8.5-10.1); Osmolality,Calculated 273.8 MOS/KG (273-304)
[2019-10-08] MEDS ORDERED: MAGNESIUM SULF RIDER 4 GM in PREMIX 1 EACH IV PRN (09:32)
[2019-10-08] MEDS ORDERED: ZALEPLON 5 MG CAPSULE PO PRN (09:32)
[2019-10-08] MEDS ORDERED: MAGNESIUM SULF RIDER 2 GM in PREMIX 1 EACH IV PRN (09:32)
[2019-10-08] MEDS ORDERED: DOCUSATE SODIUM 100 MG CAPSULE PO PRN (09:32)
[2019-10-08] MEDS ORDERED: ONDANSETRON 4 MG/2 ML VIAL IV PRN ×2 (09:32→14:03)
[2019-10-08] MEDS ORDERED: ACETAMINOPHEN 325 MG TABLET PO PRN (09:32)
[2019-10-08] MEDS ORDERED: ceFAZolin 2,000 MG in PREMIX 1 EACH IV ONE (09:38)
[2019-10-08] MEDS ORDERED: FAMOTIDINE 20 MG TABLET PO ONE (10:31)
[2019-10-08] MEDS ORDERED: DIAZEPAM 5 MG TABLET PO ONE (10:31)
[2019-10-08] MEDS ORDERED: FAMOTIDINE 20 MG TABLET ONE (10:34)
[2019-10-08] MEDS ORDERED: LACTATED RINGERS 1,000 ML IV SCH (11:00)
[2019-10-08] MEDS ORDERED: BACITRACIN OINT 0.9 GM PACK TOP ONE (13:24)
[2019-10-08] MEDS ORDERED: MAGNESIUM HYDROXIDE SUSP 30 ML UDCUP PO PRN (13:45)
[2019-10-08] MEDS ORDERED: diphenhydrAMINE CAP 25 MG CAPSULE PO PRN (13:47)
[2019-10-08] MEDS ORDERED: KETOROLAC 30 MG/1 ML VIAL IV PRN (13:47)
[2019-10-08] MEDS ORDERED: MORPHINE 4 MG/1 ML VIAL IV PRN (13:47)
[2019-10-08] MEDS ORDERED: LIDOCAINE 2% 5 ML VIAL ONE (13:58)
[2019-10-08] MEDS ORDERED: propofoL 200 MG/20 ML VIAL IV ONE (13:58)
[2019-10-08] MEDS ORDERED: LACTATED RINGERS 1,000 ML IV ONE (13:59)
[2019-10-08] MEDS ORDERED: fentaNYL 100 MCG/2 ML VIAL ONE (13:59)
[2019-10-08] MEDS ORDERED: SEVOFLURANE 1 UNIT/15 MINUTE INH ONE (13:59)
[2019-10-08] MEDS ORDERED: MIDAZOLAM 2 MG/2 ML VIAL ONE (13:59)
[2019-10-08] MEDS ORDERED: ONDANSETRON 4 MG/2 ML VIAL ONE ×2 (13:59→14:03)
[2019-10-08] MEDS ORDERED: HYDROmorphone 2 MG/1 ML VIAL ONE (14:03)
[2019-10-08] MEDS: HYDROmorphone 2 MG/1 ML VIAL IV PRN ×4 (14:05→14:20)
[2019-10-08] MEDS: METOPROLOL TARTRATE 100 MG TABLET PO SCH ×2 (16:07→21:56)
[2019-10-08] MEDS: amLODIPine 10 MG TABLET PO SCH (16:08)
[2019-10-08] MEDS: LACTATED RINGERS 1,000 ML IV SCH ×2 (16:09→21:54)
[2019-10-08] MEDS: ceFAZolin 2,000 MG in PREMIX 1 EACH IV SCH (20:44)
[2019-10-08] MEDS: MAGNESIUM OXIDE 400 MG TABLET PO SCH (21:56)
[2019-10-08] MEDS: FAMOTIDINE 20 MG TABLET PO SCH (21:56)
[2019-10-08] MEDS: MULTIVITAMIN (CENTRUM) TABLET PO SCH (21:56)
[2019-10-08] MEDS: ASPIRIN EC 81 MG TABLET PO SCH (21:56)
[2019-10-08] MEDS: MORPHINE 4 MG/1 ML VIAL IV PRN (22:42)
[2019-10-09] MEDS: MORPHINE 4 MG/1 ML VIAL IV PRN (03:54)
[2019-10-09] MEDS: ceFAZolin 2,000 MG in PREMIX 1 EACH IV SCH ×3 (06:17→20:47)
[2019-10-09 08:14] LABS: Calcium 8.4 MG/DL (8.5-10.1); Osmolality,Calculated 269.1 MOS/KG (273-304)
[2019-10-09 08:17] LABS: Basophils # 0.1 10*3/uL (0.0-0.2); Basophils % 0.6 % (0.0-0.8); Eosinophils # 0.4 10*3/uL (0.0-0.87); Eosinophils % 4.2 % (0.00-10.9); Hematocrit 38.9 VOL% (42.0-52.0); Immature Granulocytes % 0.2 %; Immature Granulocytes Absolute 0.02 #; Lymphocytes # 2.2 10*3/uL (1.4-4.0); Lymphocytes % 26.9 % (21.2-54.2); Mean Corpuscular HGB Conc 33.7 GM/DL (32-36); Mean Platelet Volume 10.6 FL (9.6-12.0); Monocytes % 13.8 % (1.7-12.7); Neutrophils % 54.3 % (38.7-73.9); Red Blood Count 3.97 MC/CUMM (3.8-5.5); Red Cell Distribution Width 12.3 % (9.3-17.3); White Blood Count 8.3 T/CUMM (4-12)
[2019-10-09 08:20] LABS: Hemoglobin 13.1 GM/DL (14.0-18.0); Platelet Count 181 T/CUMM (130-400)
[2019-10-09] MEDS ORDERED: CLORAZEPATE 3.75 MG TABLET PO PRN (08:25)
[2019-10-09] MEDS: amLODIPine 10 MG TABLET PO SCH (10:26)
[2019-10-09] MEDS: ENOXAPARIN 40 MG/0.4 ML SYRINGE SUBCUT SCH (10:26)
[2019-10-09] MEDS: FAMOTIDINE 20 MG TABLET PO SCH ×2 (10:26→20:49)
[2019-10-09] MEDS: METOPROLOL TARTRATE 100 MG TABLET PO SCH ×2 (10:27→20:49)
[2019-10-09] MEDS: LOSARTAN/HCTZ 50-12.5 MG TABLET PO SCH (10:27)
[2019-10-09] MEDS: ASPIRIN EC 81 MG TABLET PO SCH (20:48)
[2019-10-09] MEDS: MAGNESIUM OXIDE 400 MG TABLET PO SCH (20:49)
[2019-10-09] MEDS: MULTIVITAMIN (CENTRUM) TABLET PO SCH (20:50)
[2019-10-10] MEDS: ceFAZolin 2,000 MG in PREMIX 1 EACH IV SCH ×3 (07:13→20:51)
[2019-10-10] MEDS: FAMOTIDINE 20 MG TABLET PO SCH ×2 (08:34→20:53)
[2019-10-10] MEDS: LOSARTAN/HCTZ 50-12.5 MG TABLET PO SCH (08:34)
[2019-10-10] MEDS: amLODIPine 10 MG TABLET PO SCH (08:35)
[2019-10-10] MEDS: METOPROLOL TARTRATE 100 MG TABLET PO SCH ×2 (08:35→20:52)
[2019-10-10] MEDS: ENOXAPARIN 40 MG/0.4 ML SYRINGE SUBCUT SCH (09:50)
[2019-10-10] MEDS: MAGNESIUM OXIDE 400 MG TABLET PO SCH (20:52)
[2019-10-10] MEDS: MULTIVITAMIN (CENTRUM) TABLET PO SCH (20:52)
[2019-10-10] MEDS: ASPIRIN EC 81 MG TABLET PO SCH (20:53)
[2019-10-11] MEDS: ceFAZolin 2,000 MG in PREMIX 1 EACH IV SCH ×2 (03:15→13:04)
[2019-10-11] MEDS: amLODIPine 10 MG TABLET PO SCH (10:00)
[2019-10-11] MEDS: METOPROLOL TARTRATE 100 MG TABLET PO SCH (10:00)
[2019-10-11] MEDS: LOSARTAN/HCTZ 50-12.5 MG TABLET PO SCH (10:00)
[2019-10-11] MEDS: FAMOTIDINE 20 MG TABLET PO SCH (10:01)
[2019-10-11] MEDS: ENOXAPARIN 40 MG/0.4 ML SYRINGE SUBCUT SCH (10:01)
[2019-10-11 11:49] VITALS: BP 114/69
[2019-10-12] MEDS ORDERED: ASPIRIN EC 325 MG TABLET PO SCH (09:00)
== END 2019-10-11 14:20 | disposition home health service (06) | DRG 493 ==
LOC: N.CL 05:36 → N.SDSINP 06:04 → N.TELEN 14:55
PROVIDERS: ADMIT Internal Medicine Clinical Cardiac Electrophysiology; ATTEND Internal Medicine Clinical Cardiac Electrophysiology

== ENCOUNTER 2019-12-25 09:00 | Inpatient (IN) ==
[2019-12-25] MEDS ORDERED: NITROGLYCERIN 2% OINT 1 INCH/GM PACK TOP STA (09:19)
[2019-12-25] MEDS ORDERED: ENOXAPARIN 100 MG/ML SYRINGE SUBCUT STA (09:19)
[2019-12-25] MEDS ORDERED: ASPIRIN 325 MG TABLET PO STA (09:19)
[2019-12-25] MEDS ORDERED: NITROGLYCERIN 2% OINT 1 INCH/GM PACK TOP ONE (09:20)
[2019-12-25] MEDS ORDERED: ENOXAPARIN 120 MG/0.8 ML SYRINGE SUBCUT ONE (09:20)
[2019-12-25] MEDS ORDERED: ASPIRIN EC 325 MG TABLET PO ONE (09:21)
[2019-12-25 10:01] LABS: Basophils % 0.7 % (0.0-0.8); Eosinophils # 0.6 10*3/uL (0.0-0.87); Eosinophils % 9.4 % (0.00-10.9); Hematocrit 38.7 VOL% (42.0-52.0); Hemoglobin 12.8 GM/DL (14.0-18.0); Immature Granulocytes % 0.2 %; Immature Granulocytes Absolute 0.01 #; Lymphocytes % 32.4 % (21.2-54.2); Mean Corpuscular HGB Conc 33.1 GM/DL (32-36); Mean Corpuscular Volume 93.5 FL (87-102); Mean Platelet Volume 10.5 FL (9.6-12.0); Monocytes % 15.3 % (1.7-12.7); Platelet Count 219 T/CUMM (130-400); Red Blood Count 4.14 MC/CUMM (3.8-5.5); Red Cell Distribution Width 12.5 % (9.3-17.3); White Blood Count 6.1 T/CUMM (4-12)
[2019-12-25 10:13] LABS: PT Patient Result 10.6 SECS (9.8-11.9); Partial Thromboplastin Time 27.8 SECS (23.9-33.8)
[2019-12-25 10:24] LABS: Albumin 3.1 G/DL (3.4-5.0); Bilirubin,Total 0.4 MG/DL (0.2-1.0); Calcium 8.9 MG/DL (8.5-10.1); Osmolality,Calculated 279.4 MOS/KG (273-304); Total Protein 6.6 G/DL (6.4-8.3)
[2019-12-25 11:16] LABS: Apearance,Urine CLEAR (Clear); Bilirubin,Urine Negative (Negative); Blood, Urine Negative (Negative); Glucose,Urine (UA) Negative (Negative); Ketones,Urine Negative (Negative); Nitrite,Urine Negative (Negative); Protein,Urine Negative; RBC,Urine 1 /HPF (0-4); Squamous Epithelial Cell,Urine Occasional /HPF (0-10); Urine Color Straw (Yellow); Urine Specific Gravity 1.008 (1.001-1.035); Urine Urobilinogen < 2.0 EU/DL (0.2-1.0); WBC,Urine 1 /HPF (0-6)
[2019-12-25] MEDS ORDERED: ACETAMINOPHEN 325 MG TABLET PO PRN (12:26)
[2019-12-25] MEDS ORDERED: DEXTROSE 50% 25 GM/50 ML VIAL IV PRN (12:26)
[2019-12-25] MEDS ORDERED: GLUCAGON 1 MG VIAL IM PRN (12:26)
[2019-12-25] MEDS ORDERED: AMIODARONE INJ 150 MG in DEXTROSE 5% 100 ML IV ONE (13:21)
[2019-12-25] MEDS ORDERED: AMIODARONE INJ 450 MG in DEXTROSE 5% 241 ML IV SCH (13:30)
[2019-12-25 13:45] LABS: PT Patient Result 10.7 SECS (9.8-11.9)
[2019-12-25] MEDS ORDERED: MORPHINE 4 MG/1 ML VIAL ONE ×2 (14:06→14:09)
[2019-12-25] MEDS: ONDANSETRON 4 MG/2 ML VIAL IV PRN (14:11)
[2019-12-25 14:37] LABS: Risk Ratio 3.56
[2019-12-25] MEDS ORDERED: MORPHINE 4 MG/1 ML VIAL IV ONE (14:55)
[2019-12-25] MEDS: METOPROLOL TARTRATE 50 MG TABLET PO SCH (21:00)
[2019-12-25] MEDS ORDERED: METOPROLOL TARTRATE 100 MG TABLET PO SCH (21:00)
[2019-12-25] MEDS: MULTIVITAMIN (CENTRUM) TABLET PO SCH (21:00)
[2019-12-25] MEDS: MAGNESIUM OXIDE 400 MG TABLET PO SCH (21:00)
[2019-12-25] MEDS: ASPIRIN EC 81 MG TABLET PO SCH (21:00)
[2019-12-25] MEDS: AMIODARONE INJ 450 MG in DEXTROSE 5% 241 ML IV SCH (23:25)
[2019-12-26] MEDS ORDERED: MORPHINE 4 MG/1 ML VIAL IV ONE (02:16)
[2019-12-26 02:59] LABS: Basophils % 0.4 % (0.0-0.8); Eosinophils # 0.6 10*3/uL (0.0-0.87); Eosinophils % 9.2 % (0.00-10.9); Hematocrit 35.2 VOL% (42.0-52.0); Hemoglobin 11.6 GM/DL (14.0-18.0); Immature Granulocytes % 0.3 %; Immature Granulocytes Absolute 0.02 #; Lymphocytes # 2.1 10*3/uL (1.4-4.0); Lymphocytes % 30.8 % (21.2-54.2); Mean Corpuscular Volume 94.6 FL (87-102); Mean Platelet Volume 10.8 FL (9.6-12.0); Neutrophils % 45.3 % (38.7-73.9); Platelet Count 189 T/CUMM (130-400); Red Blood Count 3.72 MC/CUMM (3.8-5.5); Red Cell Distribution Width 12.7 % (9.3-17.3); White Blood Count 6.9 T/CUMM (4-12)
[2019-12-26 03:05] LABS: Calcium 8.8 MG/DL (8.5-10.1); Osmolality,Calculated 277.5 MOS/KG (273-304)
[2019-12-26] MEDS: LOSARTAN/HCTZ 50-12.5 MG TABLET PO SCH (08:39)
[2019-12-26] MEDS: FAMOTIDINE 20 MG TABLET PO SCH (08:39)
[2019-12-26] MEDS: ENOXAPARIN 40 MG/0.4 ML SYRINGE SUBCUT SCH (08:39)
[2019-12-26] MEDS: PANTOPRAZOLE 40 MG TABLET PO SCH (08:40)
[2019-12-26] MEDS: AMIODARONE 200 MG TABLET PO SCH ×2 (08:40→20:32)
[2019-12-26] MEDS: amLODIPine 10 MG TABLET PO SCH (08:40)
[2019-12-26] MEDS ORDERED: MAGNESIUM SULF RIDER 2 GM in PREMIX 1 EACH IV ONE (08:57)
[2019-12-26] MEDS: ASPIRIN EC 81 MG TABLET PO SCH (20:32)
[2019-12-26] MEDS: MAGNESIUM OXIDE 400 MG TABLET PO SCH (20:32)
[2019-12-26] MEDS: MULTIVITAMIN (CENTRUM) TABLET PO SCH (20:33)
[2019-12-26] MEDS: ATORVASTATIN 40 MG TABLET PO SCH (20:33)
[2019-12-27] MEDS: AMIODARONE INJ 450 MG in DEXTROSE 5% 241 ML IV SCH ×3 (00:27→18:19)
[2019-12-27 05:39] LABS: Basophils % 0.5 % (0.0-0.8); Eosinophils # 0.6 10*3/uL (0.0-0.87); Eosinophils % 9.7 % (0.00-10.9); Hematocrit 38.6 VOL% (42.0-52.0); Hemoglobin 12.5 GM/DL (14.0-18.0); Immature Granulocytes % 0.3 %; Immature Granulocytes Absolute 0.02 #; Lymphocytes # 1.8 10*3/uL (1.4-4.0); Lymphocytes % 28.1 % (21.2-54.2); Mean Corpuscular HGB Conc 32.4 GM/DL (32-36); Mean Corpuscular Volume 95.8 FL (87-102); Monocytes % 14.1 % (1.7-12.7); Neutrophils % 47.3 % (38.7-73.9); Platelet Count 176 T/CUMM (130-400); Red Blood Count 4.03 MC/CUMM (3.8-5.5); Red Cell Distribution Width 12.5 % (9.3-17.3); White Blood Count 6.4 T/CUMM (4-12)
[2019-12-27 06:13] LABS: Calcium 9.3 MG/DL (8.5-10.1); Osmolality,Calculated 276.5 MOS/KG (273-304)
[2019-12-27] MEDS ORDERED: LIDOCAINE 1% 20 ML VIAL ONE (07:25)
[2019-12-27] MEDS ORDERED: TISSUE ADHESIVE 1 EACH APPLICATOR TOP ONE ×2 (07:25→08:56)
[2019-12-27] MEDS ORDERED: VANCOMYCIN INJ 1,000 MG in SODIUM CHLORIDE 0.9% 250 ML IV ONE (07:30)
[2019-12-27] MEDS ORDERED: VANCOMYCIN 500 MG VIAL IRRIG ONE (07:30)
[2019-12-27] MEDS ORDERED: diphenhydrAMINE CAP 25 MG CAPSULE PO ONE (07:30)
[2019-12-27] MEDS ORDERED: MIDAZOLAM 2 MG/2 ML VIAL ONE ×2 (07:34→07:50)
[2019-12-27] MEDS ORDERED: fentaNYL 100 MCG/2 ML VIAL ONE ×2 (07:35→07:50)
[2019-12-27] MEDS ORDERED: VANCOMYCIN 500 MG VIAL ONE (07:42)
[2019-12-27] MEDS ORDERED: PROMETHAZINE 25 MG/1 ML VIAL ONE (07:52)
[2019-12-27] MEDS ORDERED: HYDROmorphone 2 MG/1 ML VIAL ONE (08:25)
[2019-12-27] MEDS ORDERED: ceFAZolin 1,000 MG VIAL IRRIG ONE (09:00)
[2019-12-27] MEDS ORDERED: DIAZEPAM 5 MG TABLET PO ONE (09:00)
[2019-12-27] MEDS ORDERED: ceFAZolin 1,000 MG in SYRINGE 1 EACH IV ONE (09:00)
[2019-12-27] MEDS ORDERED: ALUMINUM/MAGNES/SIMETH MAX STR 30 ML UDCUP PO PRN (09:38)
[2019-12-27] MEDS ORDERED: ZALEPLON 5 MG CAPSULE PO PRN (09:38)
[2019-12-27] MEDS: ONDANSETRON 4 MG/2 ML VIAL IV PRN (10:03)
[2019-12-27] MEDS: ENOXAPARIN 40 MG/0.4 ML SYRINGE SUBCUT SCH (10:14)
[2019-12-27] MEDS: AMIODARONE 200 MG TABLET PO SCH ×2 (10:15→20:35)
[2019-12-27] MEDS: FAMOTIDINE 20 MG TABLET PO SCH (10:15)
[2019-12-27] MEDS: PANTOPRAZOLE 40 MG TABLET PO SCH (10:16)
[2019-12-27] MEDS: amLODIPine 10 MG TABLET PO SCH (10:59)
[2019-12-27] MEDS: LOSARTAN/HCTZ 50-12.5 MG TABLET PO SCH (10:59)
[2019-12-27] MEDS: ATORVASTATIN 40 MG TABLET PO SCH (20:35)
[2019-12-27] MEDS: ASPIRIN EC 81 MG TABLET PO SCH (20:35)
[2019-12-27] MEDS: MULTIVITAMIN (CENTRUM) TABLET PO SCH (20:35)
[2019-12-27] MEDS: MAGNESIUM OXIDE 400 MG TABLET PO SCH (20:35)
[2019-12-28 06:12] LABS: Basophils % 0.4 % (0.0-0.8); Eosinophils # 0.5 10*3/uL (0.0-0.87); Eosinophils % 6.3 % (0.00-10.9); Hemoglobin 12.3 GM/DL (14.0-18.0); Immature Granulocytes % 0.3 %; Immature Granulocytes Absolute 0.02 #; Lymphocytes # 2.1 10*3/uL (1.4-4.0); Lymphocytes % 27.6 % (21.2-54.2); Mean Corpuscular HGB Conc 32.4 GM/DL (32-36); Mean Corpuscular Volume 95.7 FL (87-102); Mean Platelet Volume 10.8 FL (9.6-12.0); Monocytes % 15.1 % (1.7-12.7); Neutrophils % 50.3 % (38.7-73.9); Platelet Count 184 T/CUMM (130-400); Red Blood Count 3.97 MC/CUMM (3.8-5.5); Red Cell Distribution Width 12.6 % (9.3-17.3); White Blood Count 7.5 T/CUMM (4-12)
[2019-12-28 06:50] LABS: Calcium 9.4 MG/DL (8.5-10.1); Osmolality,Calculated 275.7 MOS/KG (273-304)
[2019-12-28] MEDS: LOSARTAN/HCTZ 50-12.5 MG TABLET PO SCH (09:12)
[2019-12-28] MEDS: amLODIPine 10 MG TABLET PO SCH (09:12)
[2019-12-28] MEDS: FAMOTIDINE 20 MG TABLET PO SCH (09:12)
[2019-12-28] MEDS: AMIODARONE 200 MG TABLET PO SCH (09:12)
[2019-12-28] MEDS: PANTOPRAZOLE 40 MG TABLET PO SCH (09:12)
[2019-12-28] MEDS: METOPROLOL TARTRATE 50 MG TABLET PO SCH (09:12)
[2019-12-28 09:27] VITALS: BP 108/71
== END 2019-12-28 11:40 | disposition home or self-care (01) | DRG 244 ==
LOC: N.ED 09:00 → N.EDINP 09:00 → N.TELEN 14:14
PROVIDERS: ADMIT Internal Medicine Geriatric Medicine; ATTEND Internal Medicine Geriatric Medicine